=== PATIENT | male | born 1980 | race Caucasian/White ===

== ENCOUNTER 2020-01-22 08:32 | Emergency (ER) | payer SELFPAY ==
[~2020-01-22] VITALS: Ht 170.2 cm; Wt 90.9 kg
[2020-01-22 09:10] LABS: BASO % 0 % (0-3); EOS # 0.4 x10^3/uL (0.0-0.7); EOS % 4 % (0-3); HEMATOCRIT 39.8 % (39.0-53.0); HEMOGLOBIN 13.4 g/dL (13.0-17.5); LYMPH # 3.4 x10^3/uL (1.0-4.8); LYMPH % 37 % (24-48); MEAN CORPUSCULAR HEMOGLOBIN 26 pg (25-35); MEAN CORPUSCULAR HGB CONC 34 g/dL (31-37); MEAN CORPUSCULAR VOLUME 79 fL (79-100); MONO # 0.8 x10^3/uL (0.0-1.1); MONO % 9 % (0-9); NEUT # 4.6 x10^3/uL (1.8-7.7); NEUT % 50 % (31-73); PLATELET COUNT 417 x10^3/uL (140-400); RED BLOOD COUNT 5.06 x10^6/uL (4.30-5.70); RED CELL DISTRIBUTION WIDTH 15.6 % (11.5-14.5); WHITE BLOOD COUNT 9.2 x10^3/uL (4.0-11.0)
[2020-01-22] MEDS ORDERED: IOHEXOL 300 MG/ML 100ML VIAL. IV ONE (09:15)
[2020-01-22 09:20] LABS: PROTHROMBIN TIME PATIENT 12.4 SEC (11.7-14.0)
--- NOTE | 2020-01-22 09:23 | RAD ---
EXAM: CT Head without IV contrast INDICATION: Reason: right sided paralysis / Spl. Instructions: / History: TECHNIQUE: Multi-detector row CT images were obtained of the head without the use of IV contrast. All CT scans performed at this facility utilize dose optimization techniques as appropriate to the exam, including the following: Automated exposure control and adjustment of the mA and/or KV according to patient size (this includes techniques or standardized protocols for targeted exams where dose is indication/reason for exam). COMPARISON: None FINDINGS: BRAIN PARENCHYMA: No evidence of acute intraparenchymal hemorrhage or mass effect. There is subtle loss of rios-white differentiation in the anterior left temporal lobe. This is present in the setting of white matter low density compatible with chronic ischemic microvascular change. Lower density encephalomalacia in the posterior left frontal lobe along the central sulcus is also present and could represent a chronic infarct. VENTRICLES & EXTRA-AXIAL SPACES: Ventricles are within normal limits. Basilar cisterns are patent. No pathologic extra-axial fluid collection or mass. ORBITS: Orbital contents are unremarkable. SINUSES: Visualized paranasal sinuses and mastoid air cells are clear. OSSEOUS & SOFT TISSUES: Calvarium and skull base are intact. IMPRESSION: 1. No acute intracranial hemorrhage or mass effect. 2. Subtle loss of rios-white differentiation in the anterior left temporal lobe is suspicious for possible acute evolving infarct. Recommend CT angiography further evaluation. FOR INTERNAL CODING PURPOSES Critical result: Findings discussed with KEON AUGUSTINE at 01/22/2020 9:10 AM. RESULT CODE: (C) Electronically signed by: Austin Chang MD (01/22/2020 9:20 AM) [id number]
--- NOTE | 2020-01-22 09:33 | PHYS DOC ---
General Adult EDM: Chief Complaint: ALTERED MENTAL STATUS HPI: HPI: 39 yo M PMH significant for alcohol abuse and history of seizures, presents to the ED after patient's mother was talking to him on the phone, concern for abnormal speech. History is limited due to patient's mental status. Is able to answer yes/no questions but is having difficulties getting words out. States "yes"to drinking alcohol within the past hour (ems reported alcohol intoxication). States no to movement of his right arm and right leg. Unknown last known well time. Does not take any anticoagulants. Reports yes to seizures but no if related to alcohol abuse. Does not take any routine medications and does not have any allergies. ROS: Due to medical condition Current Medications: Current Medications Medications (Trade) Dose Ordered Sig/Rod Start Time Stop Time Status Last Admin Dose Admin Iohexol (Omnipaque 300 Mg/ml) 75 ml 1X ONCE 01/22/20 09:15 01/22/20 09:18 DC 01/22/20 09:19 75 ML Allergies: Allergies: Allergies Coded Allergies Type Severity Reaction Last Updated Verified No Known Drug Allergies 01/22/20 No Physical Exam: PE: Constitutional: non-toxic appearance, in no distress HENT: Normocephalic, atraumatic, bilateral external ears normal, no tongue lacerations, right lower facial droop Eyes: PERRLA, EOMI, conjunctiva normal, no discharge. [] Neck: Normal range of motion, no tenderness, supple, no stridor. [] Cardiovascular:Heart rate regular rhythm, no murmur [] Lungs & Thorax: Bilateral breath sounds clear to auscultation [] Abdomen: Bowel sounds normal, soft, no tenderness, no masses, no pulsatile masses. [] Skin: Warm, forehead diaphpretic, no erythema, no rash. [] Back: No tenderness, no CVA tenderness. [] Extremities: No tenderness, no cyanosis, no clubbing, ROM intact, no edema. [] Neurologic: Alert-cannot state his name, right arm and leg with some mvmt against gravity, right arm falls to bed but also has some resistance/posturing, normal motor function, normal sensory function, no focal deficits noted, NIH Stroke Scale 9 points Psychologic: Affect normal, mood normal-appears frustrated when attempted to move his right arm/leg Current Patient Data: Labs: Laboratory Tests Test 01/22/20 08:45 01/22/20 08:48 White Blood Count 9.2 x10^3/uL (4.0-11.0) Red Blood Count 5.06 x10^6/uL (4.30-5.70) Hemoglobin 13.4 g/dL (13.0-17.5) Hematocrit 39.8 % (39.0-53.0) Mean Corpuscular Volume 79 fL (79-100) Mean Corpuscular Hemoglobin 26 pg (25-35) Mean Corpuscular Hemoglobin Concent 34 g/dL (31-37) Red Cell Distribution Width 15.6 % (11.5-14.5) H Platelet Count 417 x10^3/uL (140-400) H Neutrophils (%) (Auto) 50 % (31-73) Lymphocytes (%) (Auto) 37 % (24-48) Monocytes (%) (Auto) 9 % (0-9) Eosinophils (%) (Auto) 4 % (0-3) H Basophils (%) (Auto) 0 % (0-3) Neutrophils # (Auto) 4.6 x10^3/uL (1.8-7.7) Lymphocytes # (Auto) 3.4 x10^3/uL (1.0-4.8) Monocytes # (Auto) 0.8 x10^3/uL (0.0-1.1) Eosinophils # (Auto) 0.4 x10^3/uL (0.0-0.7) Basophils # (Auto) 0.0 x10^3/uL (0.0-0.2) Prothrombin Time 12.4 SEC (11.7-14.0) Prothrombin Time INR 1.0 (0.8-1.1) Activated Partial Thromboplast Time 26 SEC (24-38) Ethyl Alcohol Level < 10 mg/dL (0-10) Glucose (Fingerstick) 100 mg/dL (70-99) H Laboratory Tests 01/22/20 08:45 EKG: EKG: Sinus rhythm at 70 bpm, no axis deviation, normal intervals, no T wave inversions, no ST elevations or ST depressions Radiology/Procedures: Radiology/Procedures: []IMAGING REPORT Signed PATIENT: OK CHAN ACCOUNT: [id number] : 1980 LOCATION: ER AGE: 39 SEX: M EXAM STATUS: PRE ER ORD. PHYSICIAN: ROSEMARIE AUGUSTINE DO REASON: right sided paralysis PROCEDURE: CT CODE STROKE HEAD WO EXAM: CT Head without IV contrast INDICATION: Reason: right sided paralysis / Spl. Instructions: / History: TECHNIQUE: Multi-detector row CT images were obtained of the head without the use of IV contrast. All CT scans performed at this facility utilize dose optimization techniques as appropriate to the exam, including the following: Automated exposure control and adjustment of the mA and/or KV according to patient size (this includes techniques or standardized protocols for targeted exams where dose is indication/reason for exam). COMPARISON: None FINDINGS: BRAIN PARENCHYMA: No evidence of acute intraparenchymal hemorrhage or mass effect. There is subtle loss of rios-white differentiation in the anterior left temporal lobe. This is present in the setting of white matter low density compatible with chronic ischemic microvascular change. Lower density encephalomalacia in the posterior left frontal lobe along the central sulcus is also present and could represent a chronic infarct. VENTRICLES & EXTRA-AXIAL SPACES: Ventricles are within normal limits. Basilar cisterns are patent. No pathologic extra-axial fluid collection or mass. ORBITS: Orbital contents are unremarkable. SINUSES: Visualized paranasal sinuses and mastoid air cells are clear. OSSEOUS & SOFT TISSUES: Calvarium and skull base are intact. IMPRESSION: 1. No acute intracranial hemorrhage or mass effect. 2. Subtle loss of rios-white differentiation in the anterior left temporal lobe is suspicious for possible acute evolving infarct. Recommend CT angiography further evaluation. FOR INTERNAL CODING PURPOSES Critical result: Findings discussed with ROSEMARIE AUGUSTINE at 01/22/2020 9:10 AM. RESULT CODE: (C) Electronically signed by: Ana Rosa Chang MD (01/22/2020 9:20 AM) [id number] DICTATED and SIGNED BY: ANA ROSA CHANG MD DATE: 01/22/20919 IMAGING REPORT Signed PATIENT: OK CHAN ACCOUNT: [id number] : 1980 LOCATION: ER AGE: 39 SEX: M EXAM STATUS: REG ER ORD. PHYSICIAN: ROSEMARIE AUGUSTINE DO REASON: right sided paralysis PROCEDURE: CT ANGIOGRAPHY HEAD AND NECK EXAM: CT Angiogram of the Head and Neck INDICATION: Reason: right sided paralysis / Spl. Instructions: omni 300 75ml / History: TECHNIQUE: CT images were obtained through the head per standard CTA protocol. Multiplanar and 3D reformatted images were generated from the CT dataset on an independent workstation. All CT scans performed at this facility utilize dose optimization techniques as appropriate to the exam, including the following: Automated exposure control and adjustment of the mA and/or KV according to patient size (this includes techniques or standardized protocols for targeted exams where dose is indication/reason for exam). IV CONTRAST: Administered COMPARISON: None FINDINGS: CTA HEAD: No high-grade large vessel stenosis, proximal or branch vessel occlusion, aneurysm, or vascular malformation. ANTERIOR CIRCULATION: Distal left M1 occlusion is present with evidence of oligemia in the left temporal lobe. There is poor filling of distal M2 branches and asymmetrically diminished density of the smaller vessels in the left temporal lobe, best illustrated on axial image 289 of series 3 ANTERIOR COMMUNICATING ARTERY: Patent. POSTERIOR COMMUNICATING ARTERIES: Present bilaterally but diminutive. POSTERIOR CIRCULATION: Vertebral and basilar arteries are widely patent. Bilateral PICA's and AICAs are present. Bilateral superior cerebellar arteries and posterior cerebral arteries are present and patent. OTHER: The paranasal sinuses, mastoid air cells, and tympanic cavities are clear. NECK CTA: AORTA: 3 vessel configuration of arch. No dissection or acute aortic injury. No hemodynamically significant great vessel origin stenosis. RIGHT CAROTID: Some motion artifact at the thoracic inlet diminishes detail but there appears to be 50-69 percent stenosis of the proximal right common carotid artery while the right internal carotid artery is widely patent. LEFT CAROTID: Left common carotid artery at its midportion contains a 3 cm long wall adherent thrombus resulting in 50-69 percent luminal stenosis (image 151 of series 3). VERTEBRAL ARTERIES: Codominant. No evidence of dissection or flow limiting stenosis. SUBCLAVIAN ARTERIES:Subclavian arteries are patent without stenosis. SOFT TISSUES: Soft tissues are unremarkable. Lung apices are clear. Where applicable, evaluation of ICA stenosis was performed using NASCET criteria, where the site of greatest stenosis is compared to the diameter of the ICA distal to the carotid bulb. IMPRESSION: 1. Distal left M1 occlusion with associated occlusion of multiple M2 branch vessels. 2. Left common carotid artery moderate (50-69 percent) stenosis from long segment wall adherent intraluminal thrombus. 3. Artifact degraded evaluation of the thoracic inlet suggesting a moderate (50-69 percent) stenosis of the proximal right common carotid artery as well. FOR INTERNAL CODING PURPOSES Critical result: Findings discussed with ROSEMARIE AUGUSTINE at 01/22/2020 9:15 AM. RESULT CODE: (C) Electronically signed by: Ana Rosa Chang MD (01/22/2020 9:49 AM) [id number] DICTATED and SIGNED BY: ANA ROSA CHANG MD DATE: 01/22/20 0949 Course & Med Decision Making: Course & Med Decision Making Pertinent Labs and Imaging studies reviewed. (See chart for details) Concern for expressive aphasia with right facial droop and right-sided weakness, CTA concerning for left MCA M1 branch large vessel occlusion with bilateral carotid stenosis, cannot exclude complication of covid. Patient not intoxicated -was given Ativan, concern for possible alcohol withdrawal. Glucose 100. D/w Dr. Ward, stroke neurologist at [place]. Pt accepted by Dr. Negro (stroke neurologist) at for CT perfusion imaging, possible neuro IR intervention, not a tpa candidate, does not recommend heparin. Coags, chemistry, cbc, apap/salicylate/etoh wnl. RN notified pts' mother who agreed with plan and will meet pt at . Pt in critical condition, stable at time of emergent transfer. I have spoken with the patient and/or caregivers. I have explained the patient's condition, diagnosis and treatment plan based on the information available to me at this time. I have answered the patient's and/or caregivers questions and answered any concerns. The patient and/or caregivers have as good an understanding of the patient's diagnosis, condition and treatment plan as can be expected at this point. The patient has been stabilized within the capability of the emergency department. The patient will be transported for further care and management. Critical Care: Authorized and Performed by: Rosemarie Augustine DO Total critical care time: approximately 45 minutes Due to a high probability of clinically significant, life threatening deterioration, the patient required my highest level of preparedness to intervene emergently and I personally spent this critical care time directly and personally managing the patient. This critical care time included obtaining a history; examining the patient; pulse oximetry; ventilator management if necessary; ordering and review of studies; arranging urgent treatment with development of a management plan; evaluation of patient's response to treatment; frequent reassessment; discussion with patient/family; and, discussions with other providers. This critical care time was performed to assess and manage the high probability of imminent, life-threatening deterioration that could result i n multi-organ failure. It was exclusive of separately billable procedures and treating other patients and teaching time. Please see MDM section and the rest of the note for further information on jimmie ent assessment and treatment. Dragon Disclaimer: Dragon Disclaimer: This electronic medical record was generated, in whole or in part, using a voice recognition dictation system. Departure Departure Impression: Primary Impression: CVA (cerebral vascular accident) Additional Impression: Ischemic left MCA stroke, in utero Disposition: 02 TRANSFER [facility] (Dr. Delmy LOWE) Condition: GRAVE Justicifation of Admission Dx: Justifications for Admission: Justification of Admission Dx: Yes Stroke - Ischemic: Stroke-Ischemic ROSEMARIE AUGUSTINE DO Jan 22, 2020 09:33
[2020-01-22 09:37] LABS: ACETAMIN < 2 mcg/ml (10-30); SALIC 2.9 mg/dL (2.8-20.0)
--- NOTE | 2020-01-22 09:39 | EKG ---
[facility] [address] [place] [address] Test Date: 2020-01-22 Test Time: 09:25:27 Pat Name: OK CHAN Department: Room: Gender: M Operations Team Leader: : 1980 Requested By: KEON AUGUSTINE Order Number: [id number] Reading MD: Measurements Intervals [place] Rate: 78 P: 37 MA: 154 QRS: 46 QRSD: 90 T: 31 QT: 368 QTc: 423 Interpretive Statements SINUS RHYTHM NORMAL ECG RI6.02 No previous ECG available for comparison
[2020-01-22] MEDS ORDERED: CONTRAST GIVEN. MC PRN (09:45)
--- NOTE | 2020-01-22 09:52 | RAD ---
EXAM: CT Angiogram of the Head and Neck INDICATION: Reason: right sided paralysis / Spl. Instructions: omni 300 75ml / History: TECHNIQUE: CT images were obtained through the head per standard CTA protocol. Multiplanar and 3D reformatted images were generated from the CT dataset on an independent workstation. All CT scans performed at this facility utilize dose optimization techniques as appropriate to the exam, including the following: Automated exposure control and adjustment of the mA and/or KV according to patient size (this includes techniques or standardized protocols for targeted exams where dose is indication/reason for exam). IV CONTRAST: Administered COMPARISON: None FINDINGS: CTA HEAD: No high-grade large vessel stenosis, proximal or branch vessel occlusion, aneurysm, or vascular malformation. ANTERIOR CIRCULATION: Distal left M1 occlusion is present with evidence of oligemia in the left temporal lobe. There is poor filling of distal M2 branches and asymmetrically diminished density of the smaller vessels in the left temporal lobe, best illustrated on axial image 289 of series 3 ANTERIOR COMMUNICATING ARTERY: Patent. POSTERIOR COMMUNICATING ARTERIES: Present bilaterally but diminutive. POSTERIOR CIRCULATION: Vertebral and basilar arteries are widely patent. Bilateral PICA's and AICAs are present. Bilateral superior cerebellar arteries and posterior cerebral arteries are present and patent. OTHER: The paranasal sinuses, mastoid air cells, and tympanic cavities are clear. NECK CTA: AORTA: 3 vessel configuration of arch. No dissection or acute aortic injury. No hemodynamically significant great vessel origin stenosis. RIGHT CAROTID: Some motion artifact at the thoracic inlet diminishes detail but there appears to be 50-69 percent stenosis of the proximal right common carotid artery while the right internal carotid artery is widely patent. LEFT CAROTID: Left common carotid artery at its midportion contains a 3 cm long wall adherent thrombus resulting in 50-69 percent luminal stenosis (image 151 of series 3). VERTEBRAL ARTERIES: Codominant. No evidence of dissection or flow limiting stenosis. SUBCLAVIAN ARTERIES:Subclavian arteries are patent without stenosis. SOFT TISSUES: Soft tissues are unremarkable. Lung apices are clear. Where applicable, evaluation of ICA stenosis was performed using NASCET criteria, where the site of greatest stenosis is compared to the diameter of the ICA distal to the carotid bulb. IMPRESSION: 1. Distal left M1 occlusion with associated occlusion of multiple M2 branch vessels. 2. Left common carotid artery moderate (50-69 percent) stenosis from long segment wall adherent intraluminal thrombus. 3. Artifact degraded evaluation of the thoracic inlet suggesting a moderate (50-69 percent) stenosis of the proximal right common carotid artery as well. FOR INTERNAL CODING PURPOSES Critical result: Findings discussed with KEON AUGUSTINE at 01/22/2020 9:15 AM. RESULT CODE: (C) Electronically signed by: Austin Chang MD (01/22/2020 9:49 AM) [id number]
[2020-01-22 09:57] VITALS: BP 138/71
[2020-01-22] MEDS ORDERED: IV NORMAL SALINE 1000ML BAG 1,000 ML IV ONE (10:00)
[2020-01-22 10:33] LABS: CREATININE 1.2 mg/dL (0.7-1.3); GFR 67.4; POTASSIUM 4.2 mmol/L (3.5-5.1)
[2020-01-22 10:39] LABS: ALBUMIN 3.9 g/dL (3.4-5.0); TOTAL BILIRUBIN 0.8 mg/dL (0.2-1.0); TOTAL PROTEIN 7.8 g/dL (6.4-8.2)
== END 2020-01-22 10:04 | disposition short-term general hospital (02) ==
LOC: ER 08:32
DX: I63.512 Cerebral infarction due to unspecified occlusion or stenosis of left middle cerebral artery (principal); R29.810 Facial weakness; R47.89 Other speech disturbances; R29.709 NIHSS score 9; R41.82 Altered mental status, unspecified
CPT/HCPCS: 36415; 70450; 70496; 70498; 80053; 80329; 82140; 82962; 83605; 85025; 85610; 85730; 87040; 93005; 96374; 99291; G0480; J2060; Q9967